=== PATIENT | male | born 1990 | race Caucasian/White ===

== ENCOUNTER 2019-02-18 07:17 | Emergency (ER) | payer OTHER ==
[~2019-02-18] VITALS: Ht 172.7 cm; Wt 86.4 kg
[2019-02-18] MEDS ORDERED: LEXA1TAB2 PO (07:46)
[2019-02-18] MEDS ORDERED: valACYclovir HCL 500 MG TAB PO ONE (08:45)
[2019-02-18] MEDS ORDERED: VALT1TAB PO (08:46)
[2019-02-18 09:04] VITALS: BP 130/91
== END 2019-02-18 09:05 | disposition home or self-care (01) ==
LOC: M ED 07:17
DX: B02.9 Zoster without complications (principal); Z86.19 Personal history of other infectious and parasitic diseases; F32.9 Major depressive disorder, single episode, unspecified; Z79.899 Other long term (current) drug therapy

== ENCOUNTER 2019-05-06 10:28 | Emergency (ER) | payer OTHER ==
[~2019-05-06] VITALS: Ht 172.7 cm; Wt 93.2 kg
[~2019-05-06 10:28] MED LIST: LEXA1TAB2 PO; VALT1TAB PO
[2019-05-06] MEDS ORDERED: TETRACAINE 0.5% OPHTH SOLN 4ML OS ONE (11:00)
[2019-05-06] MEDS ORDERED: FLUORESCEIN OPHTH 1 MG STRIP OS ONE (11:00)
[2019-05-06] MEDS ORDERED: valACYclovir HCL 500 MG TAB PO ONE (11:30)
[2019-05-06] MEDS ORDERED: VALA500T5 PO (11:35)
[2019-05-06 12:34] VITALS: BP 148/86
[2019-05-07] MEDS ORDERED: POLYSOL OS (19:27)
== END 2019-05-06 13:26 | disposition home or self-care (01) ==
LOC: M ED 10:28
DX: B02.39 Other herpes zoster eye disease (principal); F32.9 Major depressive disorder, single episode, unspecified; Z86.19 Personal history of other infectious and parasitic diseases; Z79.899 Other long term (current) drug therapy

== ENCOUNTER 2019-05-07 17:24 | Emergency (ER) | payer OTHER ==
[~2019-05-07] VITALS: Ht 172.7 cm; Wt 92.7 kg
[~2019-05-07 17:24] MED LIST changes: +VALA500T5 PO
[2019-05-07] MEDS ORDERED: FLUORESCEIN OPHTH 1 MG STRIP OS ONE (19:00)
[2019-05-07] MEDS ORDERED: POLYSOL OS (19:27)
[2019-05-07] MEDS ORDERED: POLYTRIM OPTH DROPS 10ML OS ONE (19:30)
[2019-05-07 19:49] VITALS: BP 128/80
== END 2019-05-07 19:50 | disposition home or self-care (01) ==
LOC: M ED 17:24
DX: H10.89 Other conjunctivitis (principal); Z79.899 Other long term (current) drug therapy

== ENCOUNTER 2020-07-26 23:03 | Emergency (ER) | payer OTHER ==
[~2020-07-26] VITALS: Ht 175.3 cm; Wt 98.6 kg
[~2020-07-26 23:03] MED LIST changes: +POLYSOL OS
[2020-07-27] MEDS ORDERED: FLUORESCEIN OPHTH 1 MG STRIP OS ONE
[2020-07-27] MEDS ORDERED: TETRACAINE 0.5% OPHTH SOLN 4ML OS ONE
[2020-07-27] MEDS ORDERED: POLYSOL OS (01:35)
[2020-07-27] MEDS ORDERED: POLYTRIM OPTH DROPS 10ML OS STA (01:36)
[2020-07-27 01:38] VITALS: BP 139/83
== END 2020-07-27 01:44 | disposition home or self-care (01) ==
LOC: M ED 23:03
DX: S05.02XA Injury of conjunctiva and corneal abrasion without foreign body, left eye, initial encounter (principal); X58.XXXA Exposure to other specified factors, initial encounter; Y92.89 Other specified places as the place of occurrence of the external cause; Y93.89 Activity, other specified; Y99.8 Other external cause status; F33.9 Major depressive disorder, recurrent, unspecified; Z79.899 Other long term (current) drug therapy; Z86.69 Personal history of other diseases of the nervous system and sense organs; Z86.19 Personal history of other infectious and parasitic diseases; Z83.3 Family history of diabetes mellitus; Z83.2 Family history of diseases of the blood and blood-forming organs and certain disorders involving the immune mechanism

== ENCOUNTER 2020-09-04 01:11 | Emergency (ER) | payer OTHER ==
[~2020-09-04] VITALS: Ht 172.7 cm; Wt 99.5 kg
[2020-09-04] MEDS ORDERED: FISH1000 (01:23)
[2020-09-04] MEDS ORDERED: EPINEPHrine INJ 1 MG/ML 1ML AMP IM STA (01:50)
[2020-09-04] MEDS ORDERED: FAMOTIDINE INJ 20MG/2ML VIAL (S0028 PER 1) IVP ONE (02:00)
[2020-09-04] MEDS ORDERED: methylPREDNISolone 125MG 2ML VIAL IV ONE (02:00)
[2020-09-04] MEDS ORDERED: diphenhydrAMINE 50MG/ML VIAL (J1200) IV ONE (02:00)
[2020-09-04 02:40] LABS: BLOOD UREA NITROGEN 28 MG/DL (7-18); CALCIUM LEVEL 8.1 MG/DL (8.5-10.1); CARBON DIOXIDE LEVEL 24 MEQ/L (21-32); CHLORIDE LEVEL 106 MEQ/L (98-107); CREATININE FOR GFR 1.02 MG/DL (0.70-1.30); GLOMERULAR FILTRATION RATE > 60.0 (>60); GLUCOSE, FASTING 96 MG/DL (70-100); POTASSIUM SERUM 4.1 MEQ/L (3.5-5.1); SODIUM LEVEL 138 MEQ/L (136-145)
[2020-09-04] MEDS ORDERED: EPIP0.3I2 IM (06:05)
[2020-09-04 06:27] VITALS: BP 122/66
== END 2020-09-04 06:41 | disposition home or self-care (01) ==
LOC: M ED 01:11
DX: T78.2XXA Anaphylactic shock, unspecified, initial encounter (principal); Y92.9 Unspecified place or not applicable; Y93.9 Activity, unspecified
CPT/HCPCS: 80048; 93041; 94760; 96372; 96374; 96375; 99285; J0171; J1200; J2930

== ENCOUNTER 2021-05-26 16:30 | Emergency (ER) | payer OTHER ==
[~2021-05-26] VITALS: Ht 172.7 cm; Wt 89.4 kg
[~2021-05-26 16:30] MED LIST changes: +EPIP0.3I2 IM; +FISH1000
[2021-05-26] MEDS ORDERED: VITMTA PO (16:41)
[2021-05-26] MEDS ORDERED: VITA1CAP25 (16:41)
[2021-05-26] MEDS ORDERED: BUPR150T12 (16:41)
[2021-05-26] MEDS ORDERED: VALA500T5 (16:41)
[2021-05-26] MEDS ORDERED: AUGM500T34 PO (18:51)
[2021-05-26 18:56] VITALS: BP 125/71
== END 2021-05-26 19:00 | disposition home or self-care (01) ==
LOC: M ED 16:30
DX: K61.0 Anal abscess (principal); F32.9 Major depressive disorder, single episode, unspecified; Z79.899 Other long term (current) drug therapy